=== PATIENT | male | born 1995 | race Caucasian/White ===

== ENCOUNTER → 2024-08-05 | Outpatient (CLI) | payer MEDICAID, SELFPAY ==
--- NOTE | 2024-08-05 11:30 | XR_ITS ---
Examination: Abdomen sonogram, complete Date and time of exam: August 05, 2024 11:26 AM INDICATIONS: Right-sided flank pain back pain 2.5 weeks. Technique: Multiple real-time grayscale transabdominal sonographic images of the abdomen have been obtained. Findings: Normal gallbladder Normal common bile duct 0.3 cm Pancreatic head 3.1 cm Aorta not enlarged Liver 14.5 cm fatty infiltration no focal liver lesions Normal hepatopedal portal venous flow Patent IVC Right kidney 10.4 cm in the cortex 1.3 cm Left kidney 10.4 cm cortex 2.5 cm No hydronephrosis Spleen 8.6 cm IMPRESSION: Normal gallbladder Fatty liver
== END | disposition home or self-care (01) ==
LOC: CDIM 10:44
PROVIDERS: PCP Physician Assistant; Referring Provider Physician Assistant; Visit Provider Physician Assistant
DX: K76.0 Fatty (change of) liver, not elsewhere classified (principal)
CPT/HCPCS: 76700

== ENCOUNTER → 2024-08-12 | Outpatient (CLI) | payer MEDICAID, SELFPAY ==
--- NOTE | 2024-08-12 11:09 | XR_ITS ---
Examination: Testicular sonography complete TECHNIQUE: Grayscale sonographic images testes, assessment arterial inflow venous outflow Doppler spectral analysis carful analysis Exam date and time: August 12, 2024 1156 hours INDICATIONS: Right lower abdominal pain testicular pain beginning one month ago FINDINGS: Right testis 3.8 cm epididymis 22 mm Arterial flow to the testicle. No testicular mass Mild hydrocele Left testis 3.7 cm epididymis 2.2 cm Appendix testis 4 x 4 millimeter Arterial flow testicle. No testicular mass Mild hydrocele IMPRESSION: No testicular torsion or testicular mass Mild right moderate left hydrocele
--- NOTE | 2024-08-12 11:09 | XR_ITS ---
Examination: Pelvic ultrasound, transabdominal, complete Technique: Transabdominal ultrasound of the pelvis performed using grayscale imaging Date and time of exam: August 12, 2024 1136 hours INDICATIONS: Onset right lower abdominal pain beginning one month ago FINDINGS: No bladder mass or bladder calculi Bladder prevoid volume 271 cc Bladder postvoid volume 34 cc No pelvic mass Prostate 2.7 x 3.4 x 2.8 cm volume 13 cc no prostate nodules IMPRESSION: Negative study
--- NOTE | 2024-08-12 12:12 | XR_ITS ---
Examination: Abdomen AP single view Technique: AP portable supine abdomen, single view Exam date and time: August 12, 2024 1228 hours INDICATIONS: Right lower abdominal pain constipation beginning one month ago FINDINGS: Mild air and stool throughout the colon Minimal small bowel ileus in the left abdomen No free air No renal or ureteral calculi IMPRESSION: Minimal small bowel ileus
== END | disposition home or self-care (01) ==
PROVIDERS: PCP Nurse Practitioner Family; Referring Provider Nurse Practitioner Family; Visit Provider Nurse Practitioner Family
DX: R10.31 Right lower quadrant pain (principal); N43.3 Hydrocele, unspecified; K56.7 Ileus, unspecified; Z87.438 Personal history of other diseases of male genital organs
CPT/HCPCS: 74018; 76856; 76870

== ENCOUNTER → 2024-08-17 | Outpatient (CLI) | payer MEDICAID, SELFPAY ==
--- NOTE | 2024-08-17 10:38 | XR_ITS ---
Examination: CT abdomen and pelvis without contrast. Coronal 3-D reconstructions. Sagittal 2-D reconstructions. Date and time of exam:August 17, 2024 1044 hrs. Comparison August 02, 2017 Indications: Right lower abdominal pain beginning today CTDI: vol (mGy): 7.1 DLP: (mGycm): 453 Technique: Axial images of the abdomen have been obtained, 3 mm slice thickness Intravenous contrast material has not been administered. Low dose protocols were performed. One or more of the following dose reduction techniques were used; automated exposure control, adjustment of the mA and/or KV according to patient size, use of iterative reconstruction technique. Findings: Diffuse fatty infiltration throughout the liver with focal areas of fatty sparing No gallstones Spleen not enlarged No pancreatic or adrenal mass No renal or ureteral calculi, no hydronephrosis Aorta normal size Normal appendix No bowel obstruction Colonic diverticulosis, no diverticulitis Contracted urinary bladder No prostatomegaly Impression: No renal or ureteral calculi, no hydronephrosis Normal appendix No bowel obstruction diverticulitis or free air
== END | disposition home or self-care (01) ==
PROVIDERS: PCP Nurse Practitioner Family; Referring Provider Nurse Practitioner Family; Visit Provider Nurse Practitioner Family
DX: K59.09 Other constipation (principal); R10.2 Pelvic and perineal pain; R10.31 Right lower quadrant pain; R30.9 Painful micturition, unspecified; Z87.438 Personal history of other diseases of male genital organs
CPT/HCPCS: 74176